=== PATIENT | female | born 1960 | race Caucasian/White ===

== ENCOUNTER 2018-04-24 18:33 | Emergency (ER) | payer MEDICAID, OTHER | END 2018-04-24 21:01 | disposition home or self-care (01) | LOC: ED 18:33 ==

== ENCOUNTER 2018-06-06 14:44 | Inpatient (IN) | payer MEDICAID ==
[~2018-06-06] VITALS: Ht 154.9 cm; Wt 45.9 kg
[2018-06-06 15:08] VITALS: Ht 154.9 cm; Wt 45.9 kg
[2018-06-06 16:49] LABS: UA SPECIFIC GRAVITY 1.015 (1.005-1.035); microscopic required? YES; urine erythrocyte TRACE (NEGATIVE)
[2018-06-06 16:59] LABS: BASOPHIL % 0.1 % (0-2); PLATELET COUNT 200 x10^3mcL (130-400); RED CELL DISTRIBUTION WIDTH 13.4 % (11.5-14.5)
[2018-06-06 17:16] LABS: CALCIUM 8.7 mg/dL (8.5-10.1); CARBON DIOXIDE 25.2 mmol/L (21-32); CHLORIDE SERUM 103 mmol/L (98-107); CREATININE SERUM 0.9 mg/dL (0.6-1.0); GFR1 > 60 mL/min; GLUCOSE SERUM 128 mg/dL (74-106); POTASSIUM SERUM 3.7 mmol/L (3.5-5.1); SODIUM SERUM 137 mmol/L (136-145)
[2018-06-06 17:20] LABS: ALBUMIN 3.8 g/dL (3.4-5.0); ALKALINE PHOSPHATASE 96 U/L (46-116); ALT/SGPT 29 U/L (14-59); AMYLASE 84 U/L (25-115); AST/SGOT 28 U/L (15-37); BILIRUBIN TOTAL 0.5 mg/dL (0.20-1.00); LIPASE 176 IU/L (73-393); TOTAL PROTEIN, SERUM 7.6 g/dL (6.4-8.2)
[2018-06-06 19:33] LABS: CHOLESTEROL/HDL RATIO 2.9; MAGNESIUM 1.9 mg/dL (1.8-2.4); PHOSPHOROUS 2.8 mg/dL (2.5-4.9)
[2018-06-06 20:41] VITALS: BP 148/75
[2018-06-07 05:34] VITALS: BP 110/54
[2018-06-07 07:17] LABS: BASOPHIL % 0 % (0-2); PLATELET COUNT 190 x10^3mcL (130-400); RED CELL DISTRIBUTION WIDTH 13.4 % (11.5-14.5)
[2018-06-07 07:21] LABS: CALCIUM 8.3 mg/dL (8.5-10.1); CARBON DIOXIDE 26.6 mmol/L (21-32); CHLORIDE SERUM 109 mmol/L (98-107); CREATININE SERUM 0.8 mg/dL (0.6-1.0); GFR1 > 60 mL/min; GLUCOSE SERUM 87 mg/dL (74-106); POTASSIUM SERUM 3.8 mmol/L (3.5-5.1); SODIUM SERUM 143 mmol/L (136-145)
[2018-06-07 09:15] VITALS: BP 98/59
[2018-06-07 12:38] VITALS: BP 130/67
[2018-06-07 16:58] VITALS: BP 106/63
[2018-06-07 21:16] VITALS: BP 111/65
[2018-06-08 06:15] VITALS: BP 92/55
[2018-06-08 06:24] LABS: BASOPHIL % 0.3 % (0-2); PLATELET COUNT 176 x10^3mcL (130-400); RED CELL DISTRIBUTION WIDTH 13.7 % (11.5-14.5)
[2018-06-08 06:39] LABS: CALCIUM 8.3 mg/dL (8.5-10.1); CARBON DIOXIDE 22.1 mmol/L (21-32); CHLORIDE SERUM 113 mmol/L (98-107); CREATININE SERUM 0.8 mg/dL (0.6-1.0); GFR1 > 60 mL/min; GLUCOSE SERUM 91 mg/dL (74-106); POTASSIUM SERUM 3.8 mmol/L (3.5-5.1); SODIUM SERUM 146 mmol/L (136-145)
[2018-06-08 12:30] VITALS: BP 108/68
[2018-06-08] MEDS ORDERED: METAMUCIL FIBE3.4 GM GT (16:09)
[2018-06-08 16:40] VITALS: BP 108/68
[2018-06-08 17:21] VITALS: BP 130/74
== END 2018-06-08 18:22 | disposition home or self-care (01) | DRG 254 ==
LOC: ED 14:44 → MU 18:50
PROVIDERS: Emergency Medicine; Internal Medicine Gastroenterology; ADMIT Internal Medicine
PROC: 0DBH8ZZ Excision of Cecum, Via Natural or Artificial Opening Endoscopic (ICD-10-PCS; principal; 2018-06-08 10:00)
PROC: 0DBF8ZZ Excision of Right Large Intestine, Via Natural or Artificial Opening Endoscopic (ICD-10-PCS; 2018-06-08 10:00)
DX: K59.00 Constipation, unspecified (principal); Q43.8 Other specified congenital malformations of intestine; D12.0 Benign neoplasm of cecum; D12.2 Benign neoplasm of ascending colon; Z68.20 Body mass index [BMI] 20.0-20.9, adult
CPT/HCPCS: 45378; A9698; J1200; J1610; J1885; J2250; J2310; J3010; J3490; J7030; Q0092; Q9967